=== PATIENT | female | born 1990 | race Caucasian/White ===

== ENCOUNTER 2018-01-01 14:12 | Emergency (ER) | payer MEDICAID, OTHER ==
[~2018-01-01] VITALS: Ht 149.9 cm; Wt 45.0 kg
[2018-01-01 16:06] VITALS: BP 128/95
[2018-01-01] MEDS ORDERED: ACETAMINOPHEN 500 MG TABLET ONE (16:26)
[2018-01-01] MEDS ORDERED: ACETAMINOPHEN 500 MG TABLET PO ONE (16:30)
== END 2018-01-01 16:36 | disposition home or self-care (01) ==
LOC: ED 15:00
DX: S09.90XA Unspecified injury of head, initial encounter (principal); M06.9 Rheumatoid arthritis, unspecified; X58.XXXA Exposure to other specified factors, initial encounter; Y93.89 Activity, other specified; Y92.89 Other specified places as the place of occurrence of the external cause; Y99.8 Other external cause status
CPT/HCPCS: 99282

== ENCOUNTER 2018-02-01 21:43 | Emergency (ER) | payer MEDICAID ==
[~2018-02-01] VITALS: Ht 149.9 cm; Wt 54.5 kg
[2018-02-01] MEDS ORDERED: MORPHINE SULFATE 4 MG/ML, 1ML IVPush PRN (22:30)
[2018-02-01] MEDS ORDERED: LORazepam 2 MG/ML, 1ML IVPush ONE (22:30)
[2018-02-01 22:39] LABS: BASOPHILS # (AUTO) 0.04 x10^3/uL (0-0.1); BASOPHILS % (AUTO) 0 % (0-1); EOSINOPHILS # (AUTO) 0.15 x10^3/uL (0-0.4); EOSINOPHILS % (AUTO) 2 % (1-7); LYMPHOCYTES # (AUTO) 2.67 x10^3/uL (1-3.4); LYMPHOCYTES % (AUTO) 33 % (22-44); MD NO; MEAN CORPUSCULAR HEMOGLOBIN 30.7 pg (27.0-34.8); MEAN CORPUSCULAR HGB CONC 33.8 g/dL (32.4-35.8); MEAN CORPUSCULAR VOLUME 90.9 fL (80-100); MEAN PLATELET VOLUME 9.1 fL (7.4-10.4); MONOCYTES # (AUTO) 0.58 x10^3/uL (0.2-0.8); MONOCYTES % (AUTO) 7 % (2-9); NEUTROPHILS # (AUTO) 4.73 x10^3/uL (1.8-6.8); NEUTROPHILS % (AUTO) 58 % (42-75); PLATELET COUNT 307 x10^3/uL (130-400); RED BLOOD COUNT 4.08 x10^6/uL (3.82-5.3); RED CELL DISTRIBUTION WIDTH 12.9 % (9.6-15.2)
[2018-02-01] MEDS ORDERED: MORPHINE SULFATE 4 MG/ML, 1ML ONE (22:39)
[2018-02-01] MEDS ORDERED: LORazepam 2 MG/ML, 1ML ONE (22:40)
[2018-02-01 22:51] LABS: ALANINE AMINOTRANSFERASE 20 U/L (12-78); ALBUMIN 3.8 g/dL (3.4-5.0); ANION GAP 7 mmol/L (5-15); CALCIUM 8.8 mg/dL (8.5-10.1); CHLORIDE 107 mmol/L (98-107)
[2018-02-01 22:55] LABS: ALKALINE PHOSPHATASE 66 U/L (45-117); BILIRUBIN,TOTAL 0.2 mg/dL (0.2-1.0); TOTAL PROTEIN 7.9 g/dL (6.4-8.2)
[2018-02-02 00:16] VITALS: BP 125/86
== END 2018-02-02 00:19 | disposition home or self-care (01) ==
LOC: ED 23:50
DX: M79.1 Myalgia (principal); M33.13 Other dermatomyositis without myopathy
CPT/HCPCS: 36415; 80053; 84703; 85025; 96374

== ENCOUNTER 2018-02-11 19:56 | Emergency (ER) | payer MEDICAID ==
[~2018-02-11] VITALS: Ht 149.9 cm; Wt 57.0 kg
[2018-02-11] MEDS ORDERED: KETOROLAC 30 MG/1 ML IM ONE (20:30)
[2018-02-11] MEDS ORDERED: KETOROLAC 30 MG/1 ML ONE (20:56)
[2018-02-11 22:19] VITALS: BP 116/70
== END 2018-02-11 22:21 | disposition home or self-care (01) ==
LOC: ED 21:18
DX: R07.89 Other chest pain (principal); N64.4 Mastodynia; M06.9 Rheumatoid arthritis, unspecified; Z90.49 Acquired absence of other specified parts of digestive tract
CPT/HCPCS: 71046; 93005; 96372; 99284; J1885

== ENCOUNTER 2018-03-29 05:43 | Emergency (ER) | payer MEDICAID ==
[~2018-03-29 05:43] MED LIST: DOCU-131 PO; PRED20TA PO
[2018-03-29] MEDS ORDERED: KETOROLAC 30 MG/1 ML ONE (06:10)
[2018-03-29 06:19] LABS: BASOPHILS # (AUTO) 0.03 x10^3/uL (0-0.1); BASOPHILS % (AUTO) 0 % (0-1); EOSINOPHILS % (AUTO) 0 % (1-7); LYMPHOCYTES # (AUTO) 1.98 x10^3/uL (1-3.4); LYMPHOCYTES % (AUTO) 15 % (22-44); MD NO; MEAN CORPUSCULAR HEMOGLOBIN 30.7 pg (27.0-34.8); MEAN CORPUSCULAR VOLUME 90.3 fL (80-100); MEAN PLATELET VOLUME 8.3 fL (7.4-10.4); MONOCYTES % (AUTO) 5 % (2-9); NEUTROPHILS # (AUTO) 10.48 x10^3/uL (1.8-6.8); NEUTROPHILS % (AUTO) 80 % (42-75); PLATELET COUNT 440 x10^3/uL (130-400); RED BLOOD COUNT 4.37 x10^6/uL (3.82-5.3); RED CELL DISTRIBUTION WIDTH 12.9 % (9.6-15.2)
[2018-03-29 06:26] LABS: INTERNATIONAL NORMALIZED RATIO 0.91 (0.93-1.1); PROTHROMBIN TIME 9.5 Seconds (9.6-11.5)
[2018-03-29 06:29] LABS: ALBUMIN 3.7 g/dL (3.4-5.0); ANION GAP 8 mmol/L (5-15); CALCIUM 9.2 mg/dL (8.5-10.1); CHLORIDE 108 mmol/L (98-107); CREATININE 0.54 mg/dL (0.55-1.02)
[2018-03-29] MEDS ORDERED: SODIUM CHLORIDE FLUSH 10ML SYR IVF ONE (06:30)
[2018-03-29] MEDS ORDERED: KETOROLAC 30 MG/1 ML IVPush ONE (06:30)
[2018-03-29] MEDS ORDERED: CYCLOBENZAPRINE 10 MG TABLET PO ONE (07:00)
[2018-03-29] MEDS ORDERED: CYCLOBENZAPRINE 10 MG TABLET ONE (07:02)
[2018-03-29 07:40] VITALS: BP 123/82
== END 2018-03-29 08:30 | disposition home or self-care (01) ==
LOC: ED 07:35
DX: M25.562 Pain in left knee (principal); M25.561 Pain in right knee; Z87.891 Personal history of nicotine dependence; M06.9 Rheumatoid arthritis, unspecified; Z90.49 Acquired absence of other specified parts of digestive tract; Z86.73 Personal history of transient ischemic attack (TIA), and cerebral infarction without residual deficits
CPT/HCPCS: 36415; 80048; 82040; 85025; 85610; 96374; 99284; J1885

== ENCOUNTER 2018-04-19 21:34 | Emergency (ER) | payer MEDICAID ==
[~2018-04-19] VITALS: Ht 149.9 cm; Wt 55.0 kg
[2018-04-19] MEDS ORDERED: CYCL5TAB PO (22:10)
[2018-04-19] MEDS ORDERED: KETOROLAC 30 MG/1 ML ONE (22:48)
[2018-04-19] MEDS ORDERED: HYDROcodone/APAP 5/325 TABLET ONE (22:49)
[2018-04-19] MEDS ORDERED: HYDROcodone/APAP 5/325 TABLET PO ONE (23:00)
[2018-04-19] MEDS ORDERED: KETOROLAC 30 MG/1 ML IVPush ONE (23:00)
[2018-04-19 23:08] LABS: BASOPHILS # (AUTO) 0.04 x10^3/uL (0-0.1); BASOPHILS % (AUTO) 0 % (0-1); EOSINOPHILS # (AUTO) 0.16 x10^3/uL (0-0.4); EOSINOPHILS % (AUTO) 2 % (1-7); LYMPHOCYTES # (AUTO) 2.38 x10^3/uL (1-3.4); LYMPHOCYTES % (AUTO) 22 % (22-44); MD NO; MEAN CORPUSCULAR HEMOGLOBIN 30.6 pg (27.0-34.8); MEAN CORPUSCULAR HGB CONC 34.3 g/dL (32.4-35.8); MEAN CORPUSCULAR VOLUME 89.3 fL (80-100); MEAN PLATELET VOLUME 8.8 fL (7.4-10.4); MONOCYTES % (AUTO) 6 % (2-9); NEUTROPHILS # (AUTO) 7.56 x10^3/uL (1.8-6.8); NEUTROPHILS % (AUTO) 70 % (42-75); PLATELET COUNT 207 x10^3/uL (130-400); RED BLOOD COUNT 4.44 x10^6/uL (3.82-5.3); RED CELL DISTRIBUTION WIDTH 12.9 % (9.6-15.2)
[2018-04-19 23:12] LABS: ANION GAP 8 mmol/L (5-15); CALCIUM 9.1 mg/dL (8.5-10.1); CHLORIDE 106 mmol/L (98-107); CREATININE 0.78 mg/dL (0.55-1.02)
[2018-04-19 23:14] LABS: CREATINE KINASE, TOTAL 49 U/L (26-192)
[2018-04-19 23:34] VITALS: BP 116/72
== END 2018-04-19 23:55 | disposition home or self-care (01) ==
LOC: ED 22:02
DX: M13.0 Polyarthritis, unspecified (principal); R53.1 Weakness; C76.0 Malignant neoplasm of head, face and neck; M06.9 Rheumatoid arthritis, unspecified
CPT/HCPCS: 36415; 80048; 82550; 85025; 96374; 99284; J1885